=== PATIENT | male | born 1960 | race Caucasian/White ===

== ENCOUNTER 2016-06-09 06:54 | Day surgery (SDC) | payer MEDICAID ==
[~2016-06-09] VITALS: Ht 188 cm; Wt 83.8 kg
[2016-06-09] VITALS (8 sets, daily range): BP systolic 90–155; BP diastolic 51–93; PULSE 53–96; RESP 12–16; TEMP 98.4–98.6; O2SAT 94–96; Ht 188 cm; Wt 83.8 kg
[~2016-06-09 06:54] MED LIST: ACET-2321 PO; CARB-47 PO; CARB1TAB42 PO; DEXT15DR5 OP; DILT120C49 PO; DIVA500T37 PO; DOCU-168 PO; DONE10TA30 PO; ENTA200T PO; FOLI1TAB15 PO; LORA0.5T86 PO; LORA1TAB3 PO; MAGN800O PO; PARO30TA60 PO; PIMA17TA PO; POLY17PO6 PO; TEMA15CA PO; TRAM50TA4 PO
--- OUTSIDE RECORDS SUMMARY | 2016-06-09 06:58 | XMS REPORT ---
Author Author GENERATED, SYSTEM Organization Unknown Address Unknown Phone Unavailable Care Team Providers Care Beer Cooler Name Role Phone PP Unavailable Reason For Visit Chief Complaint UA Social History Functional Status Vital Signs Results Problems Encounter Diagnosis No relevant problems exist. Encounters Encounter Diagnosis No relevant problems exist. Plan of Care Procedures No relevant procedures performed. Immunizations No immunizations administered or ordered. Hospital Course Hospital Discharge Instructions Allergies, Adverse Reactions, Alerts * Latex Allergy has not been assessed. * IV Contrast Allergy has not been assessed. Medication Medication reconciliation has not been performed.
--- OUTSIDE RECORDS SUMMARY | 2016-06-09 06:59 | XMS REPORT ---
Author Author GENERATED, SYSTEM Organization Unknown Address Unknown Phone Unavailable Care Team Providers Care Chief Yeoman Name Role Phone PP Unavailable Reason For Visit Chief Complaint BILAT LEGS Social History Functional Status Vital Signs Results Chemistry from 11/02/2015 8:50 AMCHOLESTEROL 150 MG/DL (50-199 MG/DL) TRIGLYCERIDES 96 MG/DL (0-149 MG/DL) HDL CHOLESTEROL 42 MG/DL (40-60 MG/DL) *LDL (CALCULATED) CHOL 89 MG/DL (0-99 MG/DL) VALPROIC ACID 56 MCG/ML (50-100 MCG/ML) Problems Encounter Diagnosis No relevant problems exist. [...]
--- OUTSIDE RECORDS SUMMARY | 2016-06-09 06:59 | XMS REPORT ---
Author Author GENERATED, SYSTEM Organization Unknown Address Unknown Phone Unavailable Care Team Providers Care Machine Paint Mixer Name Role Phone PP Unavailable Reason For Visit Chief Complaint Z79.899 Social History Functional Status Vital Signs Results [...]
[2016-06-09] MEDS ORDERED: LIDOCAINE 1% (10mg/ml) 2ml SDV INJ ONE (07:00)
[2016-06-09] MEDS ORDERED: LR 1,000 ML IV SCH ×2 (07:00→09:39)
--- OUTSIDE RECORDS SUMMARY | 2016-06-09 07:00 | XMS REPORT | Continuity of Care Document ---
Author Author [facility] Organization [facility] Address Unknown Phone Unavailable Allergies Active Description Code Type Severity Reaction Onset Reported/Identified Relationship to Patient Clinical Status Yes No Known Medication Allergies NKMA N/A N/A 10/10/2013 Medications Problems Date Dx Coded Attending Type Code Diagnosis Diagnosed By 11/22/2015 MICHAEL NASSAR I872 Venous insufficiency (chronic) (peripheral) 11/22/2015 MICHAEL NASSAR R600 Localized edema Procedures Results Test Result Range URINALYSIS (CULTURE PRN) - 12/31/15 16:05 *URINE APPEARANCE CLEAR CLEAR *URINE BILIRUBIN NEGATIVE NEGATIVE *URINE BLOOD NEGATIVE NEGATIVE *URINE GLUCOSE NEGATIVE NEGATIVE *URINE KETONES TRACE NEGATIVE *URINE LEUKOCYTES NEGATIVE NEGATIVE *URINE NITRITES NEGATIVE NEGATIVE URINE PH 6.0 5.0-8.0 *URINE PROTEIN NEGATIVE NEGATIVE URINE SPECIFIC GRAVITY >1.030 <=1.005->= 1.030 *URINE UROBILINOGEN 0.2 0.2-1.0 *URINE COLOR YELLOW STRAW/YELL/DK YELL URINALYSIS (CULTURE PRN) - 02/14/16 15:30 *URINE APPEARANCE CLOUDY CLEAR *URINE BILIRUBIN NEGATIVE NEGATIVE *URINE BLOOD NEGATIVE NEGATIVE *URINE GLUCOSE NEGATIVE NEGATIVE *URINE KETONES 15 NEGATIVE *URINE LEUKOCYTES NEGATIVE NEGATIVE *URINE NITRITES NEGATIVE NEGATIVE URINE PH 7.5 5.0-8.0 *URINE PROTEIN NEGATIVE NEGATIVE URINE SPECIFIC GRAVITY 1.020 <=1.005->= 1.030 *URINE UROBILINOGEN 1.0 0.2-1.0 *URINE COLOR YELLOW STRAW/YELL/DK YELL CULTURE URINE - 02/14/16 15:30 CULTURE URINE No growth at 48 hrs NRG URINALYSIS, AUTOMATED WITH MICROSCOPY - 03/04/16 10:20 *URINE APPEARANCE CLEAR CLEAR *URINE BILIRUBIN NEGATIVE NEGATIVE *URINE BLOOD NEGATIVE NEGATIVE *URINE GLUCOSE NEGATIVE NEGATIVE *URINE KETONES TRACE NEGATIVE *URINE LEUKOCYTES NEGATIVE NEGATIVE *URINE NITRITES NEGATIVE NEGATIVE URINE PH 6.0 5.0-8.0 *URINE PROTEIN NEGATIVE NEGATIVE URINE SPECIFIC GRAVITY >1.030 <=1.005->= 1.030 *URINE UROBILINOGEN 1.0 0.2-1.0 *URINE COLOR STRAW STRAW/YELL/DK YELL VALPROIC ACID - 05/29/16 08:54 VALPROIC ACID 46 50-100 Encounters ACCT No. Visit Date/Time Discharge Status Pt. 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 [id number] 08/20/2015 09:09:00 2015 23:59:00 DIS Outpatient Michael Nassar V [facility] 60 day follow up from 4-19 [id number] 06/11/2015 14:45:00 2015 23:59:00 DIS Outpatient Michael Nassar V [facility] sore in his croxsis [id number] 04/12/2015 10:01:00 2015 23:59:00 DIS Outpatient Leon Beltran [facility] lower leg adema [id number] 03/14/2015 10:42:00 2015 23:59:00 DIS Outpatient Leon Beltran [facility] 2 week follow up post hospital [id number] 11/05/2014 10:05:00 2014 23:59:00 DIS Outpatient Michael Nassar V [facility] SOV [id number] 08/21/2014 10:01:00 2014 23:59:00 DIS Outpatient Michael Nassar V [facility] 3[facility] [id number] 06/03/2015 13:10:00 Document Registration
--- OUTSIDE RECORDS SUMMARY | 2016-06-09 07:00 | XMS REPORT ---
Author Author GENERATED, SYSTEM Organization Unknown Address Unknown Phone Unavailable Care Team Providers Care Patient Intake Representative Name Role Phone PP Unavailable Reason For [...]
--- OUTSIDE RECORDS SUMMARY | 2016-06-09 07:00 | XMS REPORT ---
Author Author GENERATED, SYSTEM Organization Unknown Address Unknown Phone Unavailable Care Team Providers Care Tour Coordinator Name Role Phone PP Unavailable Reason For Visit Chief Complaint 10/18/15 LE EDEMA Social History Functional Status Functional Status from 11/05/2015 12:14 PM:* Oriented To : Person,Place,Time, Event Vital Signs Results Problems Encounter Diagnosis No [...]
--- OUTSIDE RECORDS SUMMARY | 2016-06-09 07:00 | XMS REPORT ---
Author Author GENERATED, SYSTEM Organization Unknown Address Unknown Phone Unavailable Care Team Providers Care Scientific Investigator Name Role Phone PP Unavailable Reason For [...]
--- OUTSIDE RECORDS SUMMARY | 2016-06-09 07:00 | XMS REPORT ---
Author Author GENERATED, SYSTEM Organization Unknown Address Unknown Phone Unavailable Care Team Providers Care Station Manager Name Role Phone PP Unavailable Reason For Visit Chief Complaint F25.9, F06.0 Social History Functional Status Vital Signs Results Problems Encounter Diagnosis No relevant problems exist. Encounters Encounter Diagnosis No relevant problems exist. Plan of Care Procedures No relevant procedures performed. Immunizations No immunizations administered or ordered. Hospital Course Hospital Discharge Instructions Allergies, Adverse Reactions, Alerts This section is sales representative consultant of the current allergy information, at the time of the CCD generation. In the case of regeneration of the CCD, the allergy information may not reflect the state of known allergies at the time of the CCD' s subject visit. * Latex Allergy has not been assessed. * IV Contrast Allergy has not been assessed. Medication Medication reconciliation has not been performed.
--- OUTSIDE RECORDS SUMMARY | 2016-06-09 07:01 | XMS REPORT ---
Author Author GENERATED, SYSTEM Organization Unknown Address Unknown Phone Unavailable Care Team Providers Care Dictating Transcribing Machine Servicer Name Role Phone PP Unavailable Reason For [...]
--- OUTSIDE RECORDS SUMMARY | 2016-06-09 07:01 | XMS REPORT ---
Author Author GENERATED, SYSTEM Organization Unknown Address Unknown Phone Unavailable Care Team Providers Care Psychologist Personnel Name Role Phone PP Unavailable Reason For Visit Chief Complaint No relevant chief complaints exist. Social History Functional Status Vital Signs Results [...]
[2016-06-09 07:19] LABS: BASOPHILS % (AUTO) 0.1 % (0-2); EOSINOPHILS % (AUTO) 0.2 % (0-4); HCT - HEMATOCRIT 44.6 % (41-53); HGB - HEMOGLOBIN 14.7 GM/DL (13.5-17.5); IMMATURE GRANULOCYTE # (AUTO) 0.03 T/MM3 (0.00-0.03); IMMATURE GRANULOCYTE % (AUTO) 0.3 % (0.0-0.5); LYMPHOCYTES # (AUTO) 0.9 T/MM3 (1-4.8); LYMPHOCYTES % (AUTO) 10.4 % (23-45); MEAN CORPUSCULAR HGB 30.6 UUG (26-34); MEAN CORPUSCULAR VOLUME 92.9 UM3 (80-100); MEAN PLATELET VOLUME 10.9 UM3 (9.4-12.4); MONOCYTES # (AUTO) 0.5 T/MM3 (0-0.8); MONOCYTES % (AUTO) 5.4 % (0-9.0); NEUTROPHILS #(AUTO)-ABSOLUTE 7.4 T/MM3 (1.8-7.7); NEUTROPHILS % (AUTO) 83.6 % (33-66); WBC - WHITE BLOOD COUNT 8.9 T/MM3 (4.5-11.0)
[2016-06-09 07:31] LABS: ANION GAP 14 MEQ/L (5-15); BUN/CREATININE RATIO 27 RATIO (6-26); CALCIUM 9.6 MG/DL (8.4-10.2); CHLORIDE 101 MEQ/L (98-107); CO2 - CARBON DIOXIDE 26 MEQ/L (22-30); CREATININE 0.6 MG/DL (0.8-1.5); GLOMERULAR FILTRATION RATE 139; GLUCOSE 103 MG/DL (75-110); POTASSIUM 4.4 MEQ/L (3.6-5); SODIUM 141 MEQ/L (134-144)
[2016-06-09] MEDS ORDERED: LEVOFLOXACIN 500 mg IVPB 500 MG in D5W 100 ML IV ONE (08:00)
[2016-06-09] MEDS ORDERED: KETAMINE 500mg/10ml INJECTION ONE (08:33)
[2016-06-09] MEDS ORDERED: FENTANYL 100mcg/2ml INJECTION ONE (08:33)
[2016-06-09] MEDS ORDERED: MIDAZOLAM 2mg/2ml INJECTION ONE (08:33)
[2016-06-09] MEDS ORDERED: PROPOFOL 200mg 40 ML IV ONE (08:34)
[2016-06-09] MEDS ORDERED: LIDOCAINE 2% (20mg/ml) 5ml PF SDV ONE (08:34)
--- NOTE | 2016-06-09 08:46 | ANESPREOP ---
Anesthesia Record Date and Time DATE: 06/09/16 TIME: 08:43 Pre-Op Diagnosis bladder tumor vs cystis Proposed Surgical Procedure CYSTOSCOPY/BLADDER BX/FULGURATION NPO since: mn Allergies: Coded Allergies: No Known Drug Allergies (Unverified Allergy, Unknown, 09/12/15) Ht/Wt/BMI Height: 6 ' 2.00 " Weight: 83.800 kg BMI: 23.7 kg/m2 Vital Signs Date Time Temp Pulse Resp B/P Pulse Ox O2 Delivery O2 Flow Rate FiO2 06/09/16 07:43 96 16 06/09/16 07:39 98.4 155/93 96 Room Air Medications Inpatient Medications Current Medications Medications (Trade) Dose Ordered Sig/Bill Start Time Stop Time Status Last Admin Dose Admin Lactated Ringer's (Lactated Ringers) 1,000 ml @ 30 mls/hr Q24H 06/09/16 07:00 06/09/16 08:05 30 MLS/HR Acetaminophen (Tylenol) 325 Mg Tablet, 1-2 TAB PO Q4HPRN PRN for PAIN, (Reported ) Last Taken: on Unknown Date & Time Carbidopa/Levodopa (Sinemet 25-100 mg Tablet) 1 Each Tablet, 1 TAB PO 6XD, (Reported) BEST ON AN EMPTY STOMACH. Last Taken: on 06/08/16 1200 Carbidopa/Levodopa (Carbidopa-Levo ER 50-200 Tab) 1 Each Tablet.er, 1 TAB PO BID, (Reported) Last Taken: on 06/08/16 0800 Dextran 70/Hypromellose (Artificial Tears Eye Drops) 15 Ml Drops, 2 DROP OP BID PRN for PRN ORDERS, (Reported) Last Taken: on 05/31/16 1500 Diltiazem HCl (Taztia Xt) 120 Mg Capsule.er, 120 MG PO DAILY Last Taken: on 06/09/16 0530 Divalproex Sodium (Divalproex Sodium) 500 Mg Tablet.dr, 500 MG PO BID Last Taken: on 06/09/16 0530 Docusate Sodium (Colace) 100 Mg Capsule, 100 MG PO DAILY PRN for CONSTIPATION Last Taken: on Unknown Date & Time Donepezil HCl (Donepezil HCl) 10 Mg Tablet, 10 MG PO HS Last Taken: on 06/07/16 0800 Entacapone (Comtan) 200 Mg Tablet, 1 TAB PO BID , (Reported) Last Taken: on 06/09/16 0530 Folic Acid (Folic Acid) 1 Mg Tablet, 1 MG PO DAILY Last Taken: on 06/08/16 0800 Lorazepam (Ativan) 0.5 Mg Tablet, 0.5 MG PO BID , (Reported) Last Taken: on 06/09/16 0530 Lorazepam (Lorazepam) 1 Mg Tablet, 1 TAB PO Q6HPRN PRN for ANXIETY, (Reported) Last Taken: on 05/29/16 1500 Magnesium Hydroxide (Milk of Magnesia) 2,400 Mg/ 10 Ml Oral.susp, 30 ML PO DAILY PRN for CONSTIPATION, (Reported) Last Taken: on Unknown Date & Time Paroxetine HCl (Paroxetine HCl) 30 Mg Tablet, 60 MG PO DAILY, (Reported) Last Taken: on 06/08/16 0800 Pimavanserin Tartrate (Nuplazid) 17 Mg Tablet, 2 TAB PO DAILY, (Reported) Last Taken: on 06/08/16 0800 Polyethylene Glycol 3350 (Miralax) 17 Gm Powd.pack, 17 G PO QOD, (Reported) Take 17 Grams (1 capful), by mouth, once a day. Last Taken: on Unknown Date & Time Temazepam (Temazepam) 15 Mg Capsule, 15 MG PO HS PRN for INSOMNIA Last Taken: on 06/02/16 2030 Tramadol HCl (Tramadol HCl) 50 Mg Tablet, 50 MG PO Q6HPRN PRN for PAIN Last Taken: on 06/06/16 0900 Currently on Beta Stanely: No Medical/Surgical History Anesthesia PMH: Reports: *Hypertension (PER H&P), Anxiety, Depression, Other ( parkinsons), Denies: *Angina, *Diabetes, *FL, Anesthesia Reactions, Asthma, CHF , COPD, CVA/Stroke/TIA, Cancer, Glaucoma, Hiatal Hernia, Malignant Hyperthermia , Pacemaker, Pneumonia, Reflux, Sleep Apnea, Tuberculosis Smoking Status: Former smoker (quit in ) Past Surgical History Orthopedic Surgeries: Abdominal Surgeries: Yes - HERNIA REPAIR PER H&P Genitourinary Surgeries: Cardiac Surgeries: Endocrine Surgeries: Reproductive Surgeries: Neurological Surgeries: Ear Surgeries: Nose Surgeries: Throat Surgeries: Other Surgeries: No - PT AND FAMILY SAY NO Anesthesia Adverse Reactions: FOUND none Family Hx of Anesthesia Advers: none Hx of Motion Sickness: No Pertinent Findings Laboratory Tests 06/09/16 07:11 EKG Rhythm: Sinus Rhythm Physical Exam Respiratory: Bilat breath sounds equal, Lungs clear Cardiovascular: FOUND Regular rate, rhythm, FOUND No murmur Airway Assessment Mallampati Score: II TMD: 3 Fingerbreadths Neck Extension: Fair Teeth: Chipped Teeth/Crowns Overall Assessment: No Airway Concerns ASA: 3 Plan Anesthesia Plan: TIVA, LMA Discussion Discussed risks/options/alternatives of anesthesia and questions answered. Patient consents. Nursing pain assessment noted. Attestation Statement Prior to the delivery of any anesthetic medication, I examined the patient, developed the plan, obtained the patient's consent and discussed the risk and benefits of the procedure with the patient/guardian. SHRUTI FARLEY CRNA Jun 09, 2016 08:46
[2016-06-09] MEDS ORDERED: IOHEXOL 300 MG/ML 50ml INJECTION ONE (09:15)
[2016-06-09] MEDS ORDERED: MORPHINE SULFATE 4 MG SYRINGE IV PRN (09:45)
[2016-06-09] MEDS ORDERED: HYDROCODONE/APAP 5 mg/325 mg TABLET PO PRN (09:45)
[2016-06-09] MEDS ORDERED: PHENAZOPYRIDINE 95 MG TABLET PO PRN (09:45)
[2016-06-09] MEDS ORDERED: ONDANSETRON 4mg/2ml INJECTION IV PRN (09:45)
[2016-06-09] MEDS ORDERED: PHEN95TA25 PO (09:52)
--- NOTE | 2016-06-09 10:17 | ANESPO ---
Post-Op Note Date 06/09/16 Time: 10:05 Status Pt Participated in Evaluation: Pt participated in person Vital Signs Date Time Temp Pulse Resp B/P Pulse Ox O2 Delivery O2 Flow Rate FiO2 06/09/16 10:03 76 16 127/81 94 Room Air 06/09/16 09:43 98.6 Respiratory Function: Airway patent Mental Status: Alert/oriented Pain Level Intensity: 0 Hydration: IV infusing Complications during Recovery None apparent Follow-Up Instructions Instructions Per Surgeon SHRUTI FARLEY CRNA Jun 09, 2016 10:17
--- NOTE | 2016-06-09 10:35 | DI ---
Indication: ITS.REASON: BLADDER TUMOR PROCEDURE: RF RETROGRADE PYELOGRAM BILAT.: Encounter: Initial Comparison: None Findings: 12 fluoroscopic spot images are submitted for interpretation. Images show retrograde injection of contrast into the left renal collecting system with a normal appearance of the calyces. Left ureter appears slightly dilated distally with a tiny filling defect near the ureterovesicular junction that could be an air bubble or stone. Injection of contrast into the right renal collecting system shows a normal appearance of the calyces with filling defects possibly representing air bubbles within the ureter. Impression: Fluoroscopy as above. Fluoroscopy time is 50.3 seconds. Fluoroscopy dose is 1240 mRad. .
--- NOTE | 2016-06-09 11:00 | OPNOTEF ---
DATE OF OPERATION 06/09/2016 PREOPERATIVE DIAGNOSIS Bladder tumor with bladder pain and increased urinary frequency. POSTOPERATIVE DIAGNOSIS Bladder tumor with bladder pain and increased urinary frequency. OPERATION PERFORMED Cystoscopy and bilateral retrograde pyelogram and bladder biopsy with vaporization of the bladder tumor. SURGEON Sandro Artis MD ANESTHESIA TIVA INDICATION Mr. Camacho is a 56-year-old man with Parkinson's disease and trouble with urination. He has bladder pain with increased urinary urgency and frequency. Cystoscopy showed inflamed, edematous mucosal patch at the dome of the bladder without papillary features. Patient comes in today for biopsy of this and fulguration/vaporization of this tumor. DESCRIPTION OF PROCEDURE The patient was taken to the cystoscopy suite and under intravenous anesthesia she was placed in dorsal lithotomy position and prepped and draped in the usual fashion for a cystoscopy. A 21 Swedish cystoscope was inserted into the bladder under direct vision. Bladder showed mild to moderate trabeculation. There was no obvious tumor, but at the dome of the bladder there was a patch of edematous bladder mucosa with mild inflammation seen best when bladder was decompressed. Ureteral orifices were normal bilaterally in location and contour. Bladder outlet was mildly obstructing from early BPH and no urethral stricture. Bilateral retrograde pyelograms are taken with a 5 Swedish open-ended ureteral catheter with fluoroscopy. It showed normal upper tracts without evidence of obstruction, hydronephrosis or filling defect. Using a flexible biopsy cup forceps, a biopsy was taken from the dome. A second biopsy was taken in the same area. Biopsy site was cauterized with the Bugbee. The entire mucosal patch estimated to be 2-4 cm in dimension was vaporized with the Bugbee at cutting current. After assuring adequate hemostasis, bladder was emptied out and cystoscope removed. The patient tolerated the procedure well and was taken to the recovery area in stable condition. CRISTOPHER
--- NOTE | 2016-06-09 11:35 | NUR ---
PT REPORT PT DISMISSED AT 1135 TO [facility] IN [place], [place]. PT'S BROTHER WOO TOOK HIM HOME. I CALLED REPORT TO JESSENIA VELAZQUEZ LPN AT [facility] IN [facility].
== END 2016-06-09 11:35 | disposition home or self-care (01) ==
LOC: SCU 06:54
PROVIDERS: ATTEND Specialist
DX: N30.90 Cystitis, unspecified without hematuria (principal); R35.0 Frequency of micturition; R39.89 Other symptoms and signs involving the genitourinary system; I10 Essential (primary) hypertension; F41.9 Anxiety disorder, unspecified; F32.9 Major depressive disorder, single episode, unspecified; Z79.899 Other long term (current) drug therapy; Z87.891 Personal history of nicotine dependence
CPT/HCPCS: 36415; 52214; 74420; 80048; 85025; J1956; J2250; J2704; J3010; J7060; J7120; Q9967